=== PATIENT | male | born 1960 | race Caucasian/White ===

== ENCOUNTER 2019-10-04 11:25 | Inpatient (IN) | payer OTHER ==
[~2019-10-04] VITALS: Wt 6.0 kg
[2019-10-06] MEDS ORDERED: XARELTO20 MG PO (14:47)
[2019-10-06] MEDS ORDERED: CARDIZEM60 MG PO (14:47)
[2019-10-06] MEDS ORDERED: LOSARTAN POTASS25 MG PO (14:47)
[2019-10-06] MEDS ORDERED: LIPITOR20 MG PO (14:47)
[2019-10-06] MEDS ORDERED: METOPROLOL TART50 MG PO (14:47)
== END 2019-10-06 14:22 | disposition home or self-care (01) | DRG 282 ==
LOC: ER 11:25 → MEDJ 17:40
PROVIDERS: ADMIT Internal Medicine
PROC: 4A12X4Z Monitoring of Cardiac Electrical Activity, External Approach (ICD-10-PCS; principal; 2019-10-04)
PROC: B246ZZZ Ultrasonography of Right and Left Heart (ICD-10-PCS; 2019-10-04)
DX: I48.0 Paroxysmal atrial fibrillation (principal); I21.4 Non-ST elevation (NSTEMI) myocardial infarction; I10 Essential (primary) hypertension; I08.1 Rheumatic disorders of both mitral and tricuspid valves; E66.09 Other obesity due to excess calories; G47.33 Obstructive sleep apnea (adult) (pediatric); Z79.01 Long term (current) use of anticoagulants